=== PATIENT | female | born 1955 | race Two or more races ===

== ENCOUNTER 2017-11-20 07:07 | Outpatient (CLI) | payer OTHER | END 2017-11-20 07:11 | disposition home or self-care (01) | LOC: SONOGRAMA 07:07 | DX: N64.89 Other specified disorders of breast (principal) ==

== ENCOUNTER 2020-06-04 08:52 | Outpatient (CLI) | payer OTHER | END 2020-06-04 08:57 | disposition home or self-care (01) | LOC: SONOGRAMA 08:52 | PROVIDERS: ATTEND Pathology Anatomic Pathology & Clinical Pathology | DX: E04.2 Nontoxic multinodular goiter (principal) ==

== ENCOUNTER 2023-05-04 09:50 | Outpatient (CLI) | payer OTHER | END 2023-05-04 09:55 | disposition home or self-care (01) | LOC: SONOGRAMA 09:50 | PROVIDERS: ATTEND Pathology Anatomic Pathology & Clinical Pathology | DX: D36.0 Benign neoplasm of lymph nodes (principal) ==